=== PATIENT | male | born 1955 | race Caucasian/White ===

== ENCOUNTER → 2017-07-21 | Outpatient (CLI) | payer OTHER ==
[~2017-07-21] VITALS: Ht 193 cm; Wt 144.0 kg
[~2017-07-21] MED LIST: ALLO300T2 PO; CITA40TA4 PO; CLC6 PO; CLON1TAB3 PO; CYAN1DRO INJ; ERGO500037 PO; FLUT0.15 NAE; FURO-85 PO; GABA-112 PO; HYDR-3983 PO; MELO7.5T5 PO; PRLSR20 PO; TRAZ100T29 PO
[2017-07-21 09:25] VITALS: Ht 193 cm; Wt 144.0 kg
--- NOTE | 2017-07-21 10:10 | PAT Medication Instructions ---
Service Date Jul 21, 2017. Current Home Medication List Allopurinol (Zyloprim), 300 MG PO UD PRN Citalopram (Citalopram Hydrobromide), 1 TAB PO QAM Clonazepam (Klonopin), 1 MG PO TID Colchicine (Colcrys), 0.6 MG PO UD PRN for RN Cyanocobalamin (Vitamin B12), 1,000 MCG INJ [id number] Ergocalciferol (Vitamin D 44833 Unit), 50,000 UNIT PO WK Fluticasone Propionate (Nasal) (Flonase Allergy Relief), 2 [place] PRN Furosemide (Lasix), 20 MG PO PRN Gabapentin (Neurontin), 100 MG PO TID Hydrocodone/Acetaminophen 7.5MG/325MG ([place] 7.5MG/325MG), 1 TAB PO TID PRN for N Meloxicam (Mobic), 15 MG PO QAM Omeprazole (Prilosec), 20 MG PO BID Trazodone Hcl (Trazodone), 100 MG PO HS PRN for gore seamer Instructions For Your Scheduled Surgery - Hold the following medications the morning of surgery: Furosemide (Lasix), 20 MG PO PRN Meloxicam (Mobic), 15 MG PO QAM Colchicine (Colcrys), 0.6 MG PO UD PRN - Take the following medications the morning of surgery with a sip of water OTHERWISE NOTHING TO EAT OR DRINK AFTER MIDNIGHT: Allopurinol (Zyloprim), 300 MG PO UD PRN Citalopram (Citalopram Hydrobromide), 1 TAB PO QAM Clonazepam (Klonopin), 1 MG PO TID Omeprazole (Prilosec), 20 MG PO BID Gabapentin (Neurontin), 100 MG PO TID Hydrocodone/Acetaminophen 7.5MG/325MG ([place] 7.5MG/325MG), 1 TAB PO TID PRN Fluticasone Propionate (Nasal) (Flonase Allergy Relief), 2 [place] PRN - Take the following medications as scheduled the night before surgery: Clonazepam (Klonopin), 1 MG PO TID Omeprazole (Prilosec), 20 MG PO BID Gabapentin (Neurontin), 100 MG PO TID Hydrocodone/Acetaminophen 7.5MG/325MG ([place] 7.5MG/325MG), 1 TAB PO TID PRN Fluticasone Propionate (Nasal) (Flonase Allergy Relief), 2 SPR[place] PRN Trazodone Hcl (Trazodone), 100 MG PO HS PRN If you have any questions please call us at [phone] or [phone] or [phone]
[2017-07-21 10:57] LABS: BASO % 0.5 %; BASO ABS # 0.02 K/uL (0-0.2); COMPLETE YES; EOS % 1.8 %; HEMATOCRIT 45.6 % (42-52); IG% 0.3 %; LYMPH % 23.4 %; MEAN CELL VOLUME 105.8 fL (80-100); MEAN CORPUSCULAR HEMOGLOBIN 36.7 pg (25-34); MEAN CORPUSCULAR HGB CONC 34.6 g/dl (32-36); MEAN PLATELET VOLUME 10.2 fL (7.4-10.4); MONO % 7.3 %; NEUT % 66.7 %; PLATELET COUNT 145 K/uL (130-400); RED BLOOD COUNT 4.31 M/uL (4.7-6.1); WHITE BLOOD COUNT 3.85 K/uL (4.8-10.8)
[2017-07-21 11:00] LABS: URINE APPEARANCE CLOUDY (CLEAR); URINE COLOR DK YELLOW; URINE EPITHELIAL CELL AUTO >30 /lpf (0-5); URINE NITRITE NEG (NEG); URINE SPECIFIC GRAVITY 1.019 (1.000-1.030); UROBILINOGEN POS (NEG)
[2017-07-21 11:05] LABS: INR 1.1 (0.9-1.1); PARTIAL THROMBOPLASTIN RATIO 1.1; PROTHROMBIN TIME (PATIENT) 11.5 SECONDS (9.0-12.0)
[2017-07-21 11:08] LABS: MANUAL MICROSCOPIC REQUIRED? NO; REVIEW REQ? YES
[2017-07-21 11:09] LABS: URINE BILIRUBIN NEG (NEG)
[2017-07-21 11:13] LABS: CALCIUM 8.8 mg/dl (8.5-10.1); CREATININE 0.67 mg/dl (0.60-1.40); POTASSIUM 4.1 mmol/L (3.5-5.1)
[2017-07-21 12:14] LABS: ESTIMATED AVERAGE GLUCOSE 94 mg/dl; HA1C FLAG Normal (Normal)
--- NOTE | 2017-08-03 12:46 | History and Physical ---
History & Physical Date Aug 03, 2017. Chief Complaint Right knee pain History of Present Illness The patient is a 61 year old male with complaints of right knee pain. he has had pain that has come and go for some time but it is now constant. he has tried cortisone injections, NSAIDs, and PT with no relief. This affects his ADLs. he would like to proceed with a Right total knee arthroplasty. Past Medical/Surgical History PMHx: Heart murmur, anxiety, osteoarthritis, history of kidney stones PSHx: gastric bypass, right shoulder rotator cuff tear, cholecystectomy, lithotripsy, left knee arthroscopy Additional History Hepatic Disease: No Endocrine Disorder: No Kidney Disease: No Hypertension: No Heart Disease: No Bleeding Tendencies: No Infectious Diseases: No Allergies Coded Allergies: Aspirin (Verified Allergy, Unknown, TO AVOID DUE GASTRIC BYPASS, 07/21/17) Home Medications Scheduled Allopurinol (Zyloprim), 300 MG PO UD PRN Citalopram (Citalopram Hydrobromide), 1 TAB PO QAM Clonazepam (Klonopin), 1 MG PO TID Cyanocobalamin (Vitamin B12), 1,000 MCG INJ [id number] Ergocalciferol (Vitamin D 65085 Unit), 50,000 UNIT PO WK Fluticasone Propionate (Nasal) (Flonase Allergy Relief), 2 [place] PRN Furosemide (Lasix), 20 MG PO PRN Gabapentin (Neurontin), 100 MG PO TID Meloxicam (Mobic), 15 MG PO QAM Omeprazole (Prilosec), 20 MG PO BID Scheduled PRN Colchicine (Colcrys), 0.6 MG PO UD PRN for RN Hydrocodone/Acetaminophen 7.5MG/325MG ([place] 7.5MG/325MG), 1 TAB PO TID PRN for N Trazodone Hcl (Trazodone), 100 MG PO HS PRN for RN Physical Examination Skin: warm/dry, no rash Eyes: normal inspection, EOMI ENT: normal ENT inspection Head: normocephalic, atraumatic Neck: supple, no adenopathy Respiratory/Chest: lungs clear, normal breath sounds Cardiovascular: regular rate, rhythm, + systolic murmur Abdomen / GI: normal bowel sounds, non tender Extremities: normal inspection, + pertinent finding (0-90 ROM, medial joint line tenderness, ligaments are intact) Neurologic/Psych: no motor/sensory deficits, alert, oriented x 3 Diagnosis Primary osteoarthritis of right knee Plan of Treatment Patient is scheduled for a Right total knee arthroplasty. he has tried cortisone injection, PT, and NSAIDs with no relief and would like to proceed with a right total knee arthroplasty. Risks and benefits to surgery were discussed that included but no limited to increased pain, infection, DVT, need for revision surgeries, failure to relieve all symptoms, damage to blood vessels , damage to nerves, PE, and anesthesia risks were all discussed. The patient understands these risks and wishes to proceed. All questions were answered to their satisfaction.
== END | disposition home or self-care (01) ==
LOC: C.LAB 08:00 → EDSTATUS 08-14 09:35
PROVIDERS: ATTEND Orthopaedic Surgery
DX: Z01.812 Encounter for preprocedural laboratory examination (principal); Z01.810 Encounter for preprocedural cardiovascular examination; M17.11 Unilateral primary osteoarthritis, right knee

== ENCOUNTER → 2017-10-07 | Outpatient (CLI) | payer OTHER ==
[~2017-10-07] MED LIST changes: -CLC6 PO; -GABA-112 PO; -HYDR-3983 PO; +HYDR-5688 PO; -MELO7.5T5 PO; +POTA10CA28 PO
[2017-10-07 18:18] LABS: BASO % 0.6 %; BASO ABS # 0.03 K/uL (0-0.2); COMPLETE YES; HEMATOCRIT 43.1 % (42-52); IG% 0.2 %; LYMPH % 23.7 %; LYMPH ABS # 1.16 K/uL (1.2-3.4); MEAN CORPUSCULAR HEMOGLOBIN 36.1 pg (25-34); MEAN CORPUSCULAR HGB CONC 33.4 g/dl (32-36); MONO % 7.8 %; NEUT % 66.7 %; PLATELET COUNT 197 K/uL (130-400); RED BLOOD COUNT 3.99 M/uL (4.7-6.1); WHITE BLOOD COUNT 4.89 K/uL (4.8-10.8)
[2017-10-07 18:25] LABS: BLOOD UREA NITROGEN 14 mg/dl (7-18); BUN/CREATININE RATIO 21.3 (10-20); CALCIUM 8.7 mg/dl (8.5-10.1); CARBON DIOXIDE 29 mmol/L (21-32); CHLORIDE 108 mmol/L (98-107); CREATININE 0.64 mg/dl (0.60-1.40); GLUCOSE 108 mg/dl (70-99); POTASSIUM 3.2 mmol/L (3.5-5.1); SODIUM 141 mmol/L (136-145)
[2017-10-07 18:26] LABS: URINE APPEARANCE TURBID (CLEAR); URINE COLOR ORANGE; URINE EPITHELIAL CELL AUTO >30 /lpf (0-5); URINE NITRITE POS (NEG); URINE SPECIFIC GRAVITY 1.029 (1.000-1.030); UROBILINOGEN POS (NEG)
[2017-10-07 18:31] LABS: PROTHROMBIN TIME (PATIENT) 10.6 SECONDS (9.0-12.0)
[2017-10-07 19:31] LABS: MANUAL MICROSCOPIC REQUIRED? NO; REVIEW REQ? YES
[2017-10-07 19:33] LABS: URINE BILIRUBIN NEG (NEG)
[2017-10-07 20:45] LABS: URINE MUCUS PRESENT (NONE PRSENT)
== END | disposition home or self-care (01) ==
LOC: C.LABMFLN 09:54
PROVIDERS: ATTEND Physician Assistant
DX: Z01.818 Encounter for other preprocedural examination (principal)

== ENCOUNTER 2017-10-23 06:27 | Inpatient (IN) | payer OTHER ==
[2017-10-06 09:29] VITALS: BMI 38.0
--- NOTE | 2017-10-19 18:51 | History and Physical ---
History & Physical Date of Service Oct 19, 2017. History & Physical Chief Complaint Right knee pain History of Present Illness The patient is a 61 year old male with complaints of right knee pain. he has had pain that has come and go for some time but it is now constant. he has tried cortisone injections, NSAIDs, and PT with no relief. This affects his ADLs. he would like to proceed with a Right total knee arthroplasty. Past Medical/Surgical History PMHx: Heart murmur, anxiety, osteoarthritis, history of kidney stones PSHx: gastric bypass, right shoulder rotator cuff tear, cholecystectomy, lithotripsy, left knee arthroscopy Additional History Hepatic Disease: No Endocrine Disorder: No Kidney Disease: No Hypertension: No Heart Disease: No Bleeding Tendencies: No Infectious Diseases: No Allergies Coded Allergies: Aspirin (Verified Allergy, Unknown, TO AVOID DUE GASTRIC BYPASS, 07/21/17) Home Medications Scheduled Allopurinol (Zyloprim), 300 MG PO UD PRN Citalopram (Citalopram Hydrobromide), 1 TAB PO QAM Clonazepam (Klonopin), 1 MG PO TID Cyanocobalamin (Vitamin B12), 1,000 MCG INJ [id number] Ergocalciferol (Vitamin D 41598 Unit), 50,000 UNIT PO WK Fluticasone Propionate (Nasal) (Flonase Allergy Relief), 2 [place] PRN Furosemide (Lasix), 20 MG PO PRN Gabapentin (Neurontin), 100 MG PO TID Meloxicam (Mobic), 15 MG PO QAM Omeprazole (Prilosec), 20 MG PO BID Scheduled PRN Colchicine (Colcrys), 0.6 MG PO UD PRN for RN Hydrocodone/Acetaminophen 7.5MG/325MG ([place] 7.5MG/325MG), 1 TAB PO TID PRN for N Trazodone Hcl (Trazodone), 100 MG PO HS PRN for RN Physical Examination Skin: warm/dry, no rash Eyes: normal inspection, EOMI ENT: normal ENT inspection Head: normocephalic, atraumatic Neck: supple, no adenopathy Respiratory/Chest: lungs clear, normal breath sounds Cardiovascular: regular rate, rhythm, + systolic murmur Abdomen / GI: normal bowel sounds, non tender Extremities: normal inspection, + pertinent finding (0-90 ROM, medial joint line tenderness, ligaments are intact) Neurologic/Psych: no motor/sensory deficits, alert, oriented x 3 Diagnosis Primary osteoarthritis of right knee Plan of Treatment Patient is scheduled for a Right total knee arthroplasty. he has tried cortisone injection, PT, and NSAIDs with no relief and would like to proceed with a right total knee arthroplasty. Risks and benefits to surgery were discussed that included but no limited to increased pain, infection, DVT, need for revision surgeries, failure to relieve all symptoms, damage to blood vessels , damage to nerves, PE, and anesthesia risks were all discussed. The patient understands these risks and wishes to proceed. All questions were answered to their satisfaction. He would like to go to [facility] FOR DISCHARGE. We will use Lovenox for DVT Prophylaxis
[2017-10-23] VITALS (8 sets, daily range): BP systolic 132–161; BP diastolic 82–93; PULSE 49–75; TEMP 36.3–36.6; O2SAT 98–100; Ht 193 cm; Wt 144.6 kg
[~2017-10-23] VITALS: Ht 193 cm; Wt 144.6 kg
[~2017-10-23 06:27] MED LIST changes: +ACETAMINOPHEN 500 MG TAB PO SCH; +CEFAZOLIN 3000MG IV PUSH 15 ML IV SCH; +DEXAMETHASONE 4 MG TAB PO SCH; +FAMOTIDINE 20 MG TAB PO SCH; +GABAPENTIN 300 MG CAP PO SCH; +LACTATED RINGER'S 1000ML 1,000 ML IV SCH; +LACTATED RINGER'S 1000ML 500 ML IV ONE; +METOCLOPRAMIDE HCL 10 MG TAB PO SCH; +OXYCODONE HCL 10 MG TABCR (OXYCONTIN) PO SCH; +ROPIVACAINE 5MG/ML 30 ML 150 MG, BUPIVACAINE 0.5% MPF INJ 30 ML, EpINEphrine HCL INJ 0.... INFIL SCH
[2017-10-23] MEDS: TRANEXAMIC ACID INJ 1,000 MG in SYRINGE 0 ML IV SCH ×2 (06:30→08:07)
[2017-10-23] MEDS ORDERED: BUPIVACAINE 0.5 % 5 MG/1 ML PF 10ML VIAL ONE (06:31)
--- NOTE | 2017-10-23 06:51 | History & Physical Bridge Note ---
H&P Re-Evaluation Bridge Note: I have examined the patient, reviewed the History & Physical and in the interval since the performance of the History & Physical I have noted the following changes of clinical significance: No changes noted
[2017-10-23] MEDS ORDERED: MIDAZOLAM HCL 1 MG/ML 2ML VIAL ONE ×2 (07:12)
[2017-10-23] MEDS ORDERED: FENTANYL CITRATE INJ 50 MCG/1 ML 2 ML VIAL ONE (07:12)
[2017-10-23] MEDS ORDERED: BACITRACIN 50000 UNIT VIAL ONE (07:24)
[2017-10-23] MEDS ORDERED: POVIDONE-IODINE OP SOLN 30 ML BTL ONE (07:24)
[2017-10-23] MEDS ORDERED: ORTHO JOINT ANESTHETIC ONE (07:24)
[2017-10-23] MEDS ORDERED: FENTANYL CITRATE INJ 50 MCG/1 ML 2 ML VIAL IV PRN (07:30)
[2017-10-23] MEDS ORDERED: ATROPINE SULFATE 0.1 MG/ML 5ML SYR IV PRN (07:30)
[2017-10-23] MEDS ORDERED: EpHEDrine SULFATE INJ 50 MG/ML AMP IV PRN (07:30)
[2017-10-23] MEDS ORDERED: ONDANSETRON INJ 2 MG/ML 2 ML VIAL IV PRN ×2 (07:30→12:00)
[2017-10-23] MEDS ORDERED: LIDOCAINE HCL 2% 2 ML VIAL (20MG/ML) ONE (09:03)
[2017-10-23] MEDS ORDERED: PROPOFOL IV EMULSION 10 MG/ML 20 ML VIAL IV ONE ×3 (09:03→10:34)
[2017-10-23] MEDS ORDERED: MAGNESIUM HYDROXIDE SUSP 30 ML UDC PO PRN (12:00)
[2017-10-23] MEDS ORDERED: CYANOCOBALAMIN 1000 MCG INJ SCH (12:00)
[2017-10-23] MEDS ORDERED: ZOLPIDEM TARTRATE 5 MG TAB PO PRN (12:00)
[2017-10-23] MEDS ORDERED: FLUTICASONE PROPIONATE NA SPR 16 GM BTL NAE PRN (12:00)
[2017-10-23] MEDS ORDERED: METOCLOPRAMIDE HCL INJ 5 MG/ML 2 ML VIAL IV PRN (12:00)
[2017-10-23] MEDS ORDERED: ALUMINUM/MAGNESIUM/SIMETH (MAALOX MAX) 30 ML UDC PO PRN (12:00)
[2017-10-23] MEDS ORDERED: CEFAZOLIN IV 2,000 MG in DEXTROSE 5% 50ML 50 ML IV SCH (12:00)
[2017-10-23] MEDS ORDERED: SOD PHOSPHATE/SOD BIPHOSPHATE ENEMA 132 ML BTL PR PRN (12:00)
[2017-10-23] MEDS ORDERED: BISACODYL 10 MG SUPP PR PRN (12:00)
--- NOTE | 2017-10-23 12:28 | Anesthesiology Progress Note ---
Anesthesia Post Op Note Date & Time Oct 23, 2017 at 12:28 Vital Signs Pain Intensity: 0 Vital Signs Past 12 Hours Date Time Temp Pulse Resp B/P (MAP) Pulse Ox O2 Delivery O2 Flow Rate FiO2 10/23/17 12:20 48 16 144/86 100 Room Air 10/23/17 12:10 46 16 139/88 97 Room Air 10/23/17 12:00 50 18 150/90 97 Room Air 10/23/17 11:54 36 65 16 119/96 99 Room Air 10/23/17 07:12 99 Room Air 10/23/17 07:04 36.6 54 20 139/93 Notes Mental Status: alert / awake / arousable, participated in evaluation Pt Amnestic to Procedure: Yes Nausea / Vomiting: adequately controlled Pain: adequately controlled Airway Patency, RR, SpO2: stable & adequate BP & HR: stable & adequate Hydration State: stable & adequate Neuraxial Anesthesia: was administered, sensory block is resolving Anesthetic Complications: no major complications apparent
--- NOTE | 2017-10-23 13:06 | DIAGNOSTIC IMAGING REPORT ---
R KNEE 1 OR 2 VIEWS ROUTINE CLINICAL HISTORY: 62 years-old Male presenting with AP/LATERAL IN PACU RIGHT KNEE. TECHNIQUE: Frontal and crosstable lateral views of the right knee were obtained. COMPARISON: None. FINDINGS: Postsurgical changes of total right knee arthroplasty with patellar resurfacing. Surgical drain and skin alessandra noted as well as expected intra-articular and subcutaneous emphysema. No para prosthetic fracture. No malalignment. No gross hardware complication. Atherosclerosis. IMPRESSION: Expected postsurgical changes status post total right knee arthroplasty with patellar resurfacing. Electronically signed by: Anival Navarro M.D. 10/23/2017 1:05 PM Dictated Date/Time: 10/23/2017 1:04 PM
[2017-10-23] MEDS ORDERED: TRAZODONE HCL 100 MG TAB PO PRN (13:47)
[2017-10-23] MEDS: CLONAZEPAM 1 MG TAB PO SCH ×2 (14:11→20:45)
[2017-10-23] MEDS: SODIUM CHLORIDE 0.9% 1000ML 1,000 ML IV SCH ×2 (14:12→23:56)
--- NOTE | 2017-10-23 14:14 | [facility] Operative Report ---
Operative Report Operative Date Oct 23, 2017. Pre-Operative Diagnosis Primary Osteoarthritis Right Knee Post-Operative Diagnosis Primary Osteoarthritis Right Knee Procedure(s) Performed Right Total Knee Arthroplasty, Cemented Surgeon Dr. Anival Lucas Rehab Care Assistant Surgeon(s) Christ Rodrigez PA-C Estimated Blood Loss 50ml Findings As above Specimens Permanent Solution: A. Right Knee Bone and Tissue Drains 2 Hemovac Anesthesia spinal and abductor canal block Complication(s) None Disposition Recovery Room / PACU Indications 62-year-old male with long-standing osseous or change of both knees. The right is more painful left. He has failed conservative measures including multiple injections anti-inflammatories and rehabilitation. He is status post gastric bypass and has lost approximately 300 pounds. His BMI is now 38.8. He wishes to proceed with a total knee arthroplasty of the right knee. Description of Procedure Risks benefits and alternatives of surgery including but not limited to infection, DVT, pain, stiffness, need for surgery, damage to blood vessels, damage to nerves or risks of anesthesia were discussed with the patient and they wished to proceed. The patient was identified and the laterality was confirmed and marked. They received a preoperative antibiotic as well as a spinal anesthetic and an abductor canal block. A well-padded tourniquet was applied and then the limb was prepped and draped in standard manner with ChloraPrep. The limb was exsanguinated and the tourniquet was inflated. I made a standard anterior incision. I sharply incised the skin then utilized Bovie electrocautery as well as the aqua mantis to achieve hemostasis. I made a medial parapatellar arthrotomy and mobilized the patella laterally. I then excised the anterior horns of the medial and lateral meniscus as well as the infrapatellar fat pad. I elevated a portion of the MCL off of the tibia. I drilled centrally into the femoral canal and then placed a alignment amor into the femur. I then placed a 5 valgus guide into position. I made my distal cut. I then pinned into place the femoral sizing guide and determined my femoral size. Adjustments were made as necessary to ensure proper rotation and that we would not notch the femur. I then pinned into place the 5 in 1 femoral cutting guide. I made my anterior, posterior and chamfer cuts. I then excised the cruciates and the remaining portions of the menisci. I then pinned into place a extra medullary tibial cutting guide. I then made my tibial resection. I then pinned into place the tibial plate a utilizing alignment amor to confirm rotation. I then cut for the post. Utilizing a lamina cook helper vegetable and I then removed posterior osteophytes off the femur. I then placed a trial femur into position and cut for the trochlear component. I then sequentially trialed to size the polyethylene. He had significant residual laxity of the medial side after being a valgus knee. I needed to use a constrained liner to get appropriate stability. I then prepared the patella with a freehand cut utilizing sagittal saw. I sized and drilled for the patella. There was some lateral tracking to the patella and a lateral release was needed. I was able to preserve joint capsule All the trial components were removed. The deep tissues were anesthetized with an ortho mix solution. Then with Simplex HV with gentamicin cement, I cemented my definitive components. Definitive components, [employer] Journey 2: Femur 8 Tibia 8 Poly 12 constrained Patella 38 oval A betadine soak was performed. A deep drain was placed. The arthrotomy was closed with interrupted #1 Vicryl suture subcutaneous tissue was closed with interrupted 2-0 Vicryl suture. The skin was closed with with alessandra. A Prevena wound VAC was placed. Sterile dressings were applied. All needle and sponge counts were correct at the end of the procedure patient was transferred to the PACU in stable condition without apparent complication. The PA-C was necessary for assistance with procedure for assistance in positioning, prepping, draping, retraction and closure. I attest to the content of the Intraoperative Record and any orders documented therein. Any exceptions are noted below.
[2017-10-23] MEDS: CEFAZOLIN IV 2,000 MG in SYRINGE 0 ML IV SCH ×2 (17:52→23:56)
[2017-10-23] MEDS: POTASSIUM CHLORIDE 10 MEQ TABCR PO SCH (17:52)
[2017-10-23] MEDS: SENNA 8.6 MG TAB PO SCH (20:45)
[2017-10-23] MEDS: DOCUSATE SODIUM 100 MG CAP PO SCH (20:45)
[2017-10-23] MEDS: OXYCODONE HCL IR 5 MG TAB (IMMEDIATE RELEASE) PO PRN (20:46)
[2017-10-23] MEDS: ACETAMINOPHEN 500 MG TAB PO SCH (20:47)
[2017-10-23] MEDS ORDERED: CeleBREX 200 MG CAP PO SCH (21:00)
[2017-10-24] MEDS ORDERED: NURSING VERBAL MED ORDER ONE (00:45)
[2017-10-24] MEDS ORDERED: FUROSEMIDE 20 MG TAB PO PRN (01:00)
[2017-10-24 03:27] VITALS: BP 148/87; PULSE 59; TEMP 36.4; O2SAT 99
[2017-10-24] MEDS: ACETAMINOPHEN 500 MG TAB PO SCH ×3 (05:37→20:45)
[2017-10-24] MEDS: OXYCODONE HCL IR 5 MG TAB (IMMEDIATE RELEASE) PO PRN ×4 (05:39→23:37)
[2017-10-24 06:05] LABS: HEMATOCRIT 33.5 % (42-52); MEAN CELL VOLUME 102.8 fL (80-100); MEAN CORPUSCULAR HEMOGLOBIN 35.3 pg (25-34); MEAN CORPUSCULAR HGB CONC 34.3 g/dl (32-36); MEAN PLATELET VOLUME 11.7 fL (7.4-10.4); PLATELET COUNT 163 K/uL (130-400); RED BLOOD COUNT 3.26 M/uL (4.7-6.1); WHITE BLOOD COUNT 10.01 K/uL (4.8-10.8)
[2017-10-24 06:17] LABS: INR 1.1 (0.9-1.1); PROTHROMBIN TIME (PATIENT) 11.3 SECONDS (9.0-12.0)
[2017-10-24 06:38] LABS: BUN/CREATININE RATIO 14.6 (10-20); CALCIUM 8.2 mg/dl (8.5-10.1); CREATININE 0.75 mg/dl (0.60-1.40); POTASSIUM 3.8 mmol/L (3.5-5.1)
[2017-10-24] MEDS: PANTOprazole SOD 40 MG TAB PO SCH (07:45)
[2017-10-24] MEDS: CLONAZEPAM 1 MG TAB PO SCH ×3 (07:45→20:44)
[2017-10-24] MEDS: DOCUSATE SODIUM 100 MG CAP PO SCH ×2 (07:46→20:44)
[2017-10-24] MEDS: POTASSIUM CHLORIDE 10 MEQ TABCR PO SCH ×2 (07:46→17:28)
[2017-10-24] MEDS: ENOXAPARIN 30 MG/0.3 ML SYR SQ SCH ×2 (07:46→20:46)
[2017-10-24] MEDS: CITALOPRAM 40 MG TAB PO SCH (07:46)
[2017-10-24] MEDS: MULTIVITAMIN TAB PO SCH (07:46)
--- NOTE | 2017-10-24 08:12 | Orthopedic Progress Note ---
Orthopedic Progress Note Date of Service Oct 24, 2017. Subjective Post OP Day: 1 Reports: feeling well, Denies: complaints Objective calves soft nontender, N/V intact, dressing C/D/I, A&O x3, toes mobile, hemovac drainage (140ml) Date Time Temp Pulse Resp B/P (MAP) Pulse Ox O2 Delivery O2 Flow Rate FiO2 10/24/17 03:27 36.4 59 16 148/87 (107) 99 Room Air 10/23/17 23:45 Room Air 10/23/17 23:12 36.6 62 16 132/82 (99) 99 Room Air 10/23/17 19:14 36.6 54 18 147/90 (109) 99 Room Air 10/23/17 16:15 36.6 75 18 151/93 (112) 99 Room Air 10/23/17 15:30 Room Air 10/23/17 15:15 36.3 54 20 159/87 (111) 100 Room Air 10/23/17 14:15 61 17 158/87 (110) 98 Room Air 10/23/17 13:15 99 Room Air 10/23/17 13:15 Room Air 10/23/17 13:15 36.5 49 16 161/90 (113) 99 Room Air 10/23/17 13:00 46 15 155/84 99 Room Air 10/23/17 12:45 47 15 155/87 98 Room Air 10/23/17 12:30 36.4 46 16 156/91 97 Room Air 10/23/17 12:20 48 16 144/86 100 Room Air 10/23/17 12:10 46 16 139/88 97 Room Air 10/23/17 12:00 50 18 150/90 97 Room Air 10/23/17 11:54 36 65 16 119/96 99 Room Air Laboratory Results 24 Hours: Test 10/24/17 05:10 Hematocrit 33.5 % Hemoglobin 11.5 g/dL Prothromb Time International Ratio 1.1 Prothrombin Time 11.3 SECONDS Assessment & Plan Assessment: POD 1 s/p Right TKA Plan: PT/OT Pt wanting to go to [facility] ; await CM input. Inhouse Planning Pain Management: Morphine, PO Tylenol, Oxy IR DVT Prophylaxis: TEDs, SCDs, Lovenox Discharge Planning Discharge Planning: rehab hospital
[2017-10-24 08:14] VITALS: BP 113/75; PULSE 56; TEMP 36.7; O2SAT 100
[2017-10-24] MEDS ORDERED: RIVAROXABAN 10 MG TAB PO SCH (09:00)
[2017-10-24] MEDS: SODIUM CHLORIDE 0.9% 1000ML 1,000 ML IV SCH (09:09)
[2017-10-24] MEDS ORDERED: ACET-24 PO (09:33)
[2017-10-24] MEDS ORDERED: LVNIS30 SQ (09:33)
[2017-10-24] MEDS ORDERED: RXC5 PO (09:33)
[2017-10-24 11:58] VITALS: BP 119/72; PULSE 60; TEMP 36.8; O2SAT 100
[2017-10-24 15:02] VITALS: BP 103/65; PULSE 63; TEMP 36.9; O2SAT 99
[2017-10-24] MEDS: SENNA 8.6 MG TAB PO SCH (20:44)
[2017-10-24 23:05] VITALS: BP 122/71; PULSE 66; TEMP 36.8; O2SAT 98
[2017-10-25] MEDS: OXYCODONE HCL IR 5 MG TAB (IMMEDIATE RELEASE) PO PRN ×3 (03:31→13:35)
[2017-10-25] MEDS: ACETAMINOPHEN 500 MG TAB PO SCH ×2 (06:10→13:33)
[2017-10-25 07:15] VITALS: BP 109/70; PULSE 61; TEMP 36.7; O2SAT 100
[2017-10-25] MEDS: DOCUSATE SODIUM 100 MG CAP PO SCH (08:01)
[2017-10-25] MEDS: PANTOprazole SOD 40 MG TAB PO SCH (08:01)
[2017-10-25] MEDS: MULTIVITAMIN TAB PO SCH (08:01)
[2017-10-25] MEDS: CITALOPRAM 40 MG TAB PO SCH (08:01)
[2017-10-25] MEDS: POTASSIUM CHLORIDE 10 MEQ TABCR PO SCH (08:01)
[2017-10-25] MEDS: ENOXAPARIN 30 MG/0.3 ML SYR SQ SCH (08:02)
[2017-10-25] MEDS: CLONAZEPAM 1 MG TAB PO SCH ×2 (08:02→13:33)
--- NOTE | 2017-10-25 08:40 | Orthopedic Progress Note ---
Orthopedic Progress Note Date of Service Oct 25, 2017. Subjective Additional Notes: Patient seen, comfortable, no acute issues overnight Objective RLE NVSI +EHL/FHL/TA/GS SILT grossly, CR< 2 seconds, compartments soft NT, pravena incisional vac in place Date Time Temp Pulse Resp B/P (MAP) Pulse Ox O2 Delivery O2 Flow Rate FiO2 10/25/17 07:15 36.7 61 16 109/70 (83) 100 Room Air 10/24/17 23:25 Room Air 10/24/17 23:05 36.8 66 16 122/71 (88) 98 Room Air 10/24/17 15:30 Room Air 10/24/17 15:02 36.9 63 18 103/65 (78) 99 Room Air 10/24/17 11:58 36.8 60 18 119/72 (88) 100 Room Air Assessment & Plan Assessment: POD 2 s/p Right TKA Plan: -WBAT RLE -Maintain Prevena dressing -DVT PPX -Pain controlled -PT/OT -Pt wanting to go to [facility] ; await CM input. Inhouse Planning Pain Management: Morphine, PO Tylenol, Oxy IR DVT Prophylaxis: TEDs, SCDs, Lovenox Discharge Planning Discharge Planning: rehab hospital
[2017-10-25] MEDS ORDERED: RXC5 PO (08:53)
--- NOTE | 2017-10-25 08:53 | Discharge Instructions ---
Discharge Instructions Date of Service Oct 25, 2017. Admission Reason for Admission: Right Knee Osteoarthritis Discharge Discharge Diagnosis / Problem: Right Knee Djd Discharge Goals Goal(s): Decrease discomfort, Improve function, Increase independence Activity Recommendations Activity Level: Assistance Required Therapies: Physical Therapy (TKA Protocol), Occupational Therapy (ADL's and transfers) Weightbearing Status: Right weightbearing (as tolerated) . Additional Information Patient informed of condition: Yes Advance Directives: No DNR: No Level of Care: Acute Rehab Communicable Disease: No Prognosis: Stable Bergeron Catheter: No Instructions / Follow-Up Instructions / Follow-Up ACTIVITY RECOMMENDATIONS: SELF CARE INSTRUCTIONS AFTER TOTAL KNEE REPLACEMENT A. You may need to continue a physical therapy program after discharge from the hospital. There are several options available to you. Your doctor will assist you in selecting the best one for you. 1. An out-patient facility 2 to 3 times a week for therapy or home therapy. 2. Continue working on all exercises taught to you in the hospital. Your goals should be to increase bending of your knee to 90 degrees and beyond and to fully straighten your knee. B. You may progress at your own pace from walking with a walker or crutches to a cane; then to no assistive devices. C. Make walking a part of your daily routine. Be up as much as comfortable with rest periods throughout the day. Rest with leg elevation is very important. Use the ice wrap frequently for the first 3-4 weeks. D. There are no restrictions on activities. You may ride in a car, shop, participate in digital assistant and all social activities. E. Wear the long elastic stockings (DANIELLE hose) 20 hours a day for 2 weeks after surgery. They can be removed several times a day for laundering and for a bath. F. You may shower, no tub baths until cleared by your doctor. SPECIAL CARE INSTRUCTIONS: VERY IMPORTANT TO READ AND REVIEW A. There are a few signs you need to watch for after you are home. Call [facility] if you notice any of the followin. Increased severe knee pain. Some pain is expected especially when you exercise. 2. Increased swelling in your leg or knee; pain or swelling of the calf muscle in either lower leg. 3. Any fluid drainage from the incision. 4. Shortness of breath or chest pain. B. Please call [facility] at if you have any concerns or questions about your operation or recovery. The doctor or his nurse will return your call promptly. C. You must take antibiotics before dental work, bladder, bowel or other surgery. Your doctor will provide you with a permanent care to carry describing this precaution. IMPORTANT: * REMEMBER TO TAKE LOVENOX 30MG , TWICE DAILY FOR 4 WEEKS UNLESS OTHERWISE DIRECTED. THIS IS YOUR BLOOD THINNER. * HIGH RISK PATIENTS MAY BE PRESCRIBED A STRONGER BLOOD THINNER. THIS WILL BE PROVIDED AT DISCHARGE. * CALL IF INCREASED PAIN, REDNESS, DRAINAGE OR FEVER GREATER THAT 101. * WEAR DANIELLE HOSE 20 HOURS PER DAY FOR 2 WEEKS. * Prevena- This is a large suction dressing covering your incision. This will help pull any excess drainage from the wound and allow your incision to heal properly. You may shower with this if you can keep the unit outside of the shower. If any bleeding or leakage is noted please call your doctor's office. This will remain on your incision for 7 days and then should be removed. This can be done yourself or by the home nursing staff if applicable. The entire unit is disposable once removed. Once removed, keep incision clean and dry. If redness or drainage is noted, please call your surgeon. . FOLLOW UP VISIT: If appointment is not already scheduled: Please call [facility] to make a follow-up appointment for 2 weeks after your surgery at . Current Hospital Diet Patient's current hospital diet: Regular Diet Discharge Diet Recommended Diet: Regular Diet Procedures Procedures Performed: Right Total Knee Arthroplasty, Cemented Pending Studies Studies pending at discharge: no Physician Orders On Transfer Dressing Changes: Remove Prevena dressing 7 days from day of surgery Vital Signs: routine Medical Emergencies . Who to Call and When: Medical Emergencies: If at any time you feel your situation is an emergency, please call 911 immediately. . Non-Emergent Contact Non-Emergency issues call your: Surgeon Call Non-Emergent contact if: temperature is above 101.5, your pain is not controlled, your pain is worsening, wound has increased drainage, wound has increased redness . . "Provider Documentation" section prepared by Noel Vivar. . Core Measure Problem Core Measures: None [place] Drug Monitoring Program Search Results: patient reviewed within database, no issues identified
[2017-10-25 11:09] VITALS: TEMP 36.7; O2SAT 100
[2017-10-25 11:14] VITALS: BP 97/59; PULSE 65; O2SAT 98
--- NOTE | 2017-11-03 16:45 | Discharge Summary ---
Orthopedic Discharge Summary Admission Date/Reason Oct 23, 2017 at 06:50 Right Knee Osteoarthritis. Discharge Date/Disposition Oct 25, 2017 correction facility Diagnosis Principal Diagnosis: S/P right TKA Medication Reconciliation as per discharge instructions Admission Physical Exam As per Admitting History & Physical. Hospital Course POD#1 patient was feeling well. pain was well controlled. His output of his drain was high so he was kept overnight. POD#2 patient was feeling well. He was to do morning PT. He was scheduled to go to [facility]. He was discharged later that day. Discharge Instructions Please refer to the electronic Patient Visit Report (Discharge Instructions) for additional information.
== END 2017-10-25 14:30 | DRG 470 ==
LOC: C.ACU 06:27 → C.3E 06:50 → ENRESERV 12:41
PROVIDERS: ADMIT Orthopaedic Surgery; ATTEND Orthopaedic Surgery
PROC: 0SRC0J9 Replacement of Right Knee Joint with Synthetic Substitute, Cemented, Open Approach (ICD-10-PCS; principal; 2017-10-23 09:05)
DX: M17.11 Unilateral primary osteoarthritis, right knee (principal); Z79.899 Other long term (current) drug therapy; Z88.6 Allergy status to analgesic agent; Z98.84 Bariatric surgery status

== ENCOUNTER → 2018-02-17 | Outpatient (CLI) | payer OTHER ==
[~2018-02-17] MED LIST changes: -ACETAMINOPHEN 500 MG TAB PO SCH; -CEFAZOLIN 3000MG IV PUSH 15 ML IV SCH; -DEXAMETHASONE 4 MG TAB PO SCH; -FAMOTIDINE 20 MG TAB PO SCH; -GABAPENTIN 300 MG CAP PO SCH; -HYDR-5688 PO; -LACTATED RINGER'S 1000ML 1,000 ML IV SCH; -LACTATED RINGER'S 1000ML 500 ML IV ONE; -METOCLOPRAMIDE HCL 10 MG TAB PO SCH; -OXYCODONE HCL 10 MG TABCR (OXYCONTIN) PO SCH; -ROPIVACAINE 5MG/ML 30 ML 150 MG, BUPIVACAINE 0.5% MPF INJ 30 ML, EpINEphrine HCL INJ 0.... INFIL SCH
[2018-02-17 13:08] LABS: BASO % 0.5 %; BASO ABS # 0.02 K/uL (0-0.2); EOS % 2.6 %; EOS ABS # 0.11 K/uL (0-0.5); HEMATOCRIT 39.3 % (42-52); HEMOGLOBIN 12.9 g/dL (14.0-18.0); IG# 0.01 K/uL (0.00-0.02); LYMPH % 31.7 %; LYMPH ABS # 1.32 K/uL (1.2-3.4); MEAN CELL VOLUME 94.2 fL (80-100); MEAN CORPUSCULAR HEMOGLOBIN 30.9 pg (25-34); MEAN CORPUSCULAR HGB CONC 32.8 g/dl (32-36); MEAN PLATELET VOLUME 10.8 fL (7.4-10.4); MONO % 7.7 %; MONO ABS # 0.32 K/uL (0.11-0.59); NEUT % 57.3 %; NEUT ABS # 2.38 K/uL (1.4-6.5); PLATELET COUNT 190 K/uL (130-400); RED CELL DISTRIBUTION WIDTH CV 14.6 % (11.5-14.5); RED CELL DISTRIBUTION WIDTH SD 49.8 fL (36.4-46.3); WHITE BLOOD COUNT 4.16 K/uL (4.8-10.8)
[2018-02-17 13:16] LABS: PTT PATIENT 26.1 SECONDS (21.0-31.0)
[2018-02-17 14:32] LABS: ALBUMIN 3.8 gm/dl (3.4-5.0); BLOOD UREA NITROGEN 18 mg/dl (7-18); CALCIUM 9.1 mg/dl (8.5-10.1); CARBON DIOXIDE 25 mmol/L (21-32); CREATININE 0.91 mg/dl (0.60-1.40); GLUCOSE 101 mg/dl (70-99); POTASSIUM 4.1 mmol/L (3.5-5.1); SODIUM 141 mmol/L (136-145)
[2018-02-18 07:13] LABS: HEMOGLOBIN A1C 5.3 % (4.5-5.6)
== END | disposition home or self-care (01) ==
LOC: C.LABMFLN 17:52
PROVIDERS: ATTEND Orthopaedic Surgery
DX: Z01.812 Encounter for preprocedural laboratory examination (principal); Z01.818 Encounter for other preprocedural examination; Z01.810 Encounter for preprocedural cardiovascular examination